=== PATIENT | female | born 2005 | race Two or more races ===

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

== ENCOUNTER 2025-01-24 08:47 | Outpatient (REF) | payer BC, SELFPAY ==
[2025-01-25 03:06] LABS: Bacterial Vaginosis PCR NEGATIVE (Negative); Candida Group PCR NOT DETECTED (Not Detect); Candida glab krusei PCR NOT DETECTED (Not Detect); Trichomonas vaginalis PCR NOT DETECTED (Not Detect)
[2025-01-25 03:38] LABS: CT PCR NOT DETECTED (Not Detect.); NG PCR NOT DETECTED (Not Detect.)
== END 2025-01-24 08:48 | disposition home or self-care (01) ==
LOC: HO.LNP 08:47
PROVIDERS: PCP Pediatrics; Visit Provider Advanced Practice Midwife
DX: A74.9 Chlamydial infection, unspecified (principal); B37.31 Acute candidiasis of vulva and vagina; N89.9 Noninflammatory disorder of vagina, unspecified; Z78.9 Other specified health status
CPT/HCPCS: 81515; 87491; 87591

== ENCOUNTER 2025-01-24 08:47 | Outpatient (AMB) | payer BC, SELFPAY ==
--- NOTE | 2025-01-24 08:57 | A.OFFVIS_ITS ---
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 She is 19 years old so she is not yet due for Pap smear she is interested in STI testing she was seen last spring for severe vaginal swelling and discomfort and pain. She was extremely swollen and sore and speculum exam was not possible teaching done about possible of the of other causative factors but patient was tested for STIs and treated for severe yeast infection and testing was done with the Q-tips to introitus only. Patient says the infection turned out to be a yeast infection and chlamydia as well the yeast infection she figured out retrospectively was because she was wearing several layers of Spandex at a track meet all day long and was very damp and sweaty and there was a lot of friction at her vulva and groin all day long and that helped initiate the vaginal irritation and yeast infection she was treated with both fluconazole and miconazole for the yeast infection and then she was treated with doxy Cyclen for the chlamydia and her partner was treated as well. She wishes to be tested again today but she had has no special concerns. 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 I am offering her another prescription for yeast treatment should she have the same situation arise in the future and she would like a prescription for the Monistat cream and I will send refills to her pharmacy for her I am also going to be renewing her patches for year she is doing well with them with no difficulty whatsoever she is healthy does not smoke has no contraindications at all. [facility] Medical History COVID-19 Orbital floor fracture Mild intermittent asthma Surgical History No pertinent past surgical history Family History Father Asthma HTN (hypertension) Mother No problems noted. Maternal Grandfather Alcohol abuse Maternal Grandmother Anxiety and depression Social History Household Members: Family Household Members Other:: lives with mom. step-father and siblings Housing: Apartment Alcohol intake: never Patient Tobacco Use Status: Never used Tobacco Second Hand Smoke Exposure: No Cognitive needs: No Hearing needs: No Vision needs: No Female Reproductive History Menstrual Age of Menarche: 12 Duration of menses: 3-5 days Date of last menstrual period: 01/19/25 control method: patch Physical Exam Vital Signs: Last Vital Signs BP 102/62 01/24/25 09:11 BMI result Body Mass Index 19.3 Const General: healthy appearing, comfortable, no acute distress, well developed and alert Nutritional Appearance: average body habitus Orientation/consciousness: patient oriented x3 Limitations: no limitations HEENT Head: Yes normocephalic Neck Neck: Yes normal visual inspection Chest Chest palpation & inspection: normal inspection of the chest Breast/axilla inspection: normal inspection of the breasts and normal inspection of the axillae Breast/axilla palpation: normal palpation of the breasts and normal palpation of the axillae Resp Effort & Inspection: normal respiratory effort GI Inspection: Yes normal to inspection, No Abdominal wall edema and No distended Palpation (GI): Soft to palpation and nontender Other: 1st pelvic done external exam within normal limits no irritation or erythema or lesions or swelling noted no abnormal discharge vagina pink and moist and healthy appearing nulliparous cervix pink smooth healthy appearing scant tinge of end of menses which ended yesterday for her cervix long close thick mobile nontender uterus small midposition mobile nontender adnexa nontender good muscle tone with Kegel. General: Yes bladder normal to palpation External Female Exam: normal external appearance and normal appearance of the urethra Speculum Exam - Vagina: normal appearance of the vagina, normal palpation and normal vaginal discharge Speculum Exam - Cervix: normal appearance of the cervix, normal palpation and nontender Bimanual exam- vagina & uterus: normal bimanual exam, normal palpation, uterine size normal, bladder normal to palpation, consistency normal, normal palpation, uterine mobility normal, uterine shape normal, No Cervical tenderness present, non-tender and no cervical motion tenderness Bimanual Exam- Adnexa, other: normal adnexae, no masses, normal and No adnexal tenderness Neuro General: patient oriented x3 Assessment & Plan Assessment & Plan (1) Uses hormonal contraceptive patch as primary control method: Comment: Renewed and teaching reviewed 10/15/2023. Code(s): Z78.9 - Other specified health status Category: Social Hx (2) Yeast infection involving the vagina and surrounding area: Code(s): B37.31 - Acute candidiasis of vulva and vagina Category: Medical (3) Swelling of vagina: Comment: consistent with yeast and exacerbated by friction from Spandex/ athletic activities. no evidence of herpes at this time.; was treated successfully with Diflucan and miconazole. I am giving new prescription for miconazole for her to have in case the same situation ever arises she will do her best to avoid it as well. Code(s): N89.9 - Noninflammatory disorder of vagina, unspecified Category: Medical (4) Encounter for screening examination for sexually transmitted disease: Code(s): Z11.3 - Encounter for screening for infections with a predominantly sexual mode of transmission Category: Medical (5) Chlamydia infection: Comment: She and partner re-treated in May. screening today. Code(s): A74.9 - Chlamydial infection, unspecified Category: Medical Plan -----Discussed in this visit the following: healthy balanced diet, regular and consistent exercise, getting recommended health screens, doing the best she can for her particular health concerns, kegel exercises, pap smear screening and followup recommendations, mammography screening and SBE, normal changes in cycles in her life stage--- . 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 She is 19 years old so she is not yet due for Pap smear she is interested in STI testing she was seen last spring for severe vaginal swelling and discomfort and pain. She was extremely swollen and sore and speculum exam was not possible teaching done about possible of the of other causative factors but patient was tested for STIs and treated for severe yeast infection and testing was done with the Q-tips to introitus only. Patient says the infection turned out to be a yeast infection and chlamydia as well the yeast infection she figured out retrospectively was because she was wearing several layers of Spandex at a track meet all day long and was very damp and sweaty and there was a lot of friction at her vulva and groin all day long and that helped initiate the vaginal irritation and yeast infection she was treated with both fluconazole and miconazole for the yeast infection and then she was treated with doxy Cyclen for the chlamydia and her partner was treated as well. She wishes to be tested again today but she had has no special concerns. 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 I am offering her another prescription for yeast treatment should she have the same situation arise in the future and she would like a prescription for the Monistat cream and I will send refills to her pharmacy for her I am also going to be renewing her patches for year she is doing well with them with no difficulty whatsoever she is healthy does not smoke has no contraindications at all. Note her chart had a cited allergy to Monistat cream in the allergy list citing vaginal pain as the reaction but the severe vaginal infection pre dated the treatment with the Monistat cream so refills are being sent for the patient and it was removed from her allergy list. Reviewed her use of the patch she is having absolutely no difficulty with it whatsoever she has chosen spots on the back of her arm for convenience and to avoid schmidt lines and it works very well for her. This note is constructed using voice recognition software. While every effort has been made to ensure accuracy, commercial airline pilot errors may have been included. Medications: New norelgestromin-ethin.estradiol 150-35 mcg/24 hr (Xulane) apply once weekly for 3 weeks of a 4-week cycle 1 patch transdermal Q7D 9 ea 4RF Refilled miconazole nitrate 2% (Miconazole-7) 1 appful vaginal BEDTIME 45 grams 3RF 7 days Coding Level of Care Code Est Pt Prev Care 18-39y(91776) Diagnoses Uses hormonal contraceptive patch as primary control method Z78.9 Yeast infection involving the vagina and surrounding area B37.31 Swelling of vagina N89.9 Encounter for screening examination for sexually transmitted disease Z11.3 Chlamydia infection A74.9
[2025-01-24 09:11] VITALS: BP 102/62; BMI 19.3
--- OUTSIDE RECORDS SUMMARY | 2025-01-24 09:12 | XMS_ITS | Encounter Summary ---
Author Organization [facility] Address [address] [place] [address] Phone Care Team Providers Care Diesel Engine Operator Name Role Phone Angelika Mcclellan MD Primary Care Provider [phone] Encounter Details Date Type Department Care Team (Late st Contact Info) Description 10/15/2016 Conversion Encounter [facility] [address] [place] [address] Social History Tobacco Use Types Packs/Day Years [...] on filedocumented in this encounter Care Teams Diesel Engine Operator Relationship Specialty Start Date End Date Angelika Mcclellan MD [address] [place] [address] PCP - General 10/09/16 06/10/22 documented as of this encounter
--- OUTSIDE RECORDS SUMMARY | 2025-01-24 09:12 | XMS_ITS | Clinical Summary ---
Author Organization [facility] Address [address] [place] [id number] Phone Care Team Providers Care Zone Manager Name Role Phone Unavailable Primary Care Provider [...] of Deafness, No family history of Sudden /[place] under age 55, No family history of [...] 2 - Standard) 2021 Influenza Vaccines (#1) 2024 11/19/19 07, 03/22/2006, 02/17/2006 COVID-19 Vaccine ( - 2024- season) 2024 Hepatitis B Vaccines Completed 2005, 2005, 2005, Additional history exists MMR Vaccines Completed 05/17/2006 HIB Vaccines Completed 08/17/2006, 10/30, 2005, Additional history exists Pneumococcal Vaccine Completed 08/17/2006, 2005, 2005, Additional history exists Hepatitis A Vaccines Completed 11/18/2006, 05/18/19 07 Meningococcal Vaccine Aged Out No mil sheela eligible based on patient's age to complete this topic
== END 2025-01-24 09:53 | disposition home or self-care (01) ==
LOC: HO.HWSM 08:47
PROVIDERS: PCP Pediatrics; Visit Provider Advanced Practice Midwife
DX: Z01.419 Encounter for gynecological examination (general) (routine) without abnormal findings (principal); B37.31 Acute candidiasis of vulva and vagina; N89.9 Noninflammatory disorder of vagina, unspecified; A74.9 Chlamydial infection, unspecified; Z11.3 Encounter for screening for infections with a predominantly sexual mode of transmission
CPT/HCPCS: 99395; 99459